=== PATIENT | male | born 1975 | race Caucasian/White ===

== ENCOUNTER → 2024-01-15 | Outpatient (CLI) | payer OTHER, SELFPAY ==
[2024-01-15 09:49] LABS: Hematocrit 46.6 % (40-54)
[2024-01-15 10:23] LABS: ALB/GLOB Ratio 1.4 RATIO (0.9-2.4); AST(SGOT) 34 U/L (15-37); Alanine Aminotransfer ALT/SGPT 72 U/L (16-61); Albumin, Serum 4.1 g/dL (3.2-5.0); Alkaline Phosphatase 92 U/L (45-117); Anion Gap 7 (5-15); BUN 16 mg/dL (7-18); BUN/Creat Ratio 12.5 RATIO (10-20); Calcium,Total 8.9 mg/dL (8.5-10.1); Chloride 108 mmol/L (98-107); Cholesterol 148 mg/dL (200); Creatinine, Serum 1.28 mg/dL (0.70-1.30); EST Glomerular Filtration Rate 64 mL/min (>60); Est Glom Filt Rate - Afr Amer 77 mL/min (>60); Estradiol 24.8 pg/mL; Follicle Stimulating Hormone 4.3 mIU/mL; Glucose 120 mg/dL (74-106); High Density Lipoprotein 35 mg/dL; Luteinizing Hormone 2.3 mIU/mL; PSA,Total - Annual Screen 0.54 ng/mL (0.00-4.00); Protein, Total 7.1 g/dL (6.4-8.2); Sodium Level 140 mmol/L (136-145); Thyroid Stim Hormone (TSH) 3.15 uIU/mL (0.358-3.74); Triglycerides 258 mg/dL; Very Low Density Lipoprotein 52 mg/dL (5-40)
[2024-01-20 11:59] LABS: PROLACTIN 5.1 ng/mL (3.9-22.7); Testosterone, % Free 2.86 % (1.50-4.20); Testosterone, Free 5.63 ng/dL (5.00-21.00); Testosterone, Total 197 ng/dL (264-916)
== END | disposition home or self-care (01) ==
PROVIDERS: PCP Nurse Practitioner Family; Referring Provider Nurse Practitioner Family; Visit Provider Nurse Practitioner Family
DX: Z12.5 Encounter for screening for malignant neoplasm of prostate (principal); R53.83 Other fatigue; E29.1 Testicular hypofunction; R68.82 Decreased libido; R63.5 Abnormal weight gain; R35.0 Frequency of micturition; R39.16 Straining to void
CPT/HCPCS: 36415; 80053; 80061; 82627; 82670; 83001; 83002; 84146; 84153; 84270; 84402; 84403; 84443; 85014; 85018; 82626; G0103